=== PATIENT | female | born 1995 | race Caucasian/White ===

== ENCOUNTER 2020-09-07 10:56 | Emergency (ER) | payer MEDICAID ==
[~2020-09-07] VITALS: Ht 157.5 cm; Wt 65.7 kg
[2020-09-07] MEDS ORDERED: ACETAMINOPHEN 500 MG TABLET PO ONE (13:00)
[2020-09-07 13:03] LABS: BILIRUBIN,URINE NEGATIVE (NEG); COLOR,URINE YELLOW; NITRITE,URINE NEGATIVE (NEG); PROTEIN,URINE NEGATIVE (NEG-TRACE); UROBILINOGEN,URINE 0.2 mg/dL (0.2 mg/dL)
[2020-09-07 13:07] LABS: CLARITY,URINE HAZY
[2020-09-07 13:08] LABS: BACTERIA,URINE FEW /HPF (0-FEW)
--- NOTE | 2020-09-07 13:21 | PHYS DOC ---
Past Medical History Past Medical History: Diabetes-Type II, Other Additional Past Medical Histor: placental abrubtion (COREY BAUER SANDAL PARTS ASSEMBLER) Past Surgical History: (COREY BAUER SANDAL PARTS ASSEMBLER) Smoking Status: Current Every Day Smoker Additional Information: 5 cigarettes daily Alcohol Use: None (COREY BAUER APRN) General Adult EDM: Chief Complaint: ABDOMINAL PAIN HPI: HPI: Patient is a 25 year old Female who presents with last menstrual period July 20. She states that she had many test that were positive and then it has slowly been fading into a negative. 2 days of small vaginal bleeding and intermittent cramping with some nausea. She denies abdominal pain at this time. Patient has a history of back in December, diabetes, smoker. She does not currently have a OB doctor. (COREY BAUER SANDAL PARTS ASSEMBLER) Review of Systems: Review of Systems: Constitutional: Denies fever or chills. [] Eyes: Denies change in visual acuity. [] HENT: Denies nasal congestion or sore throat. [] Respiratory: Denies cough or shortness of breath. [] Cardiovascular: Denies chest pain or edema. [] GI: + abdominal pain, +nausea, denies vomiting, bloody stools or diarrhea. [] : Denies dysuria. + Vaginal bleeding [] Musculoskeletal: Denies back pain or joint pain. [] Integument: Denies rash. [] Neurologic: Denies headache, focal weakness or sensory changes. [] Endocrine: Denies polyuria or polydipsia. [] Lymphatic: Denies swollen glands. [] Psychiatric: Denies depression or anxiety. [] (COREY BAUER SANDAL PARTS ASSEMBLER) Heart Score: Risk Factors: Risk Factors: DM, Current or recent (<one month) smoker, HTN, HLP, family history of CAD, obesity. Risk Scores: Score 0 - 3: 2.5% MACE over next 6 weeks - Discharge Home Score 4 - 6: 20.3% MACE over next 6 weeks - Admit for Clinical Observation Score 7 - 10: 72.7% MACE over next 6 weeks - Early Invasive Strategies (COREY BAUER S[employer]AL [employer] ASSEMBLER) Current Medications: Current Medications Medications (Trade) Dose Ordered Sig/Abelardo Start Time Stop Time Status Last Admin Dose Admin Acetaminophen (Tylenol) 1,000 mg 1X ONCE 09/07/20 13:00 09/07/20 13:01 DC (LIZETTECOREYFRITZ Boothe APRN) Allergies: Allergies: Allergies Coded Allergies Type Severity Reaction Last Updated Verified amoxicillin Adverse Reaction Intermediate n/v 09/07/20 Yes (RUBINA BAUERFRITZ Boothe APRN) Physical Exam: PE: Constitutional: Well developed, well nourished, no acute distress, non-toxic appearance. [] HENT: Normocephalic, atraumatic, bilateral external ears normal, oropharynx moist, no oral exudates, nose normal. [] Eyes: PERRLA, EOMI, conjunctiva normal, no discharge. [] Neck: Normal range of motion, no tenderness, supple, no stridor. [] Cardiovascular:Heart rate regular rhythm, no murmur [] Lungs & Thorax: Bilateral breath sounds clear to auscultation [] Abdomen: Bowel sounds normal, soft, no tenderness, no masses, no pulsatile masses. [] Skin: Warm, dry, no erythema, no rash. [] Back: No tenderness, no CVA tenderness. [] Extremities: No tenderness, no cyanosis, no clubbing, ROM intact, no edema. [] Neurologic: Alert and oriented X 3, normal motor function, normal sensory function, no focal deficits noted. [] Psychologic: Affect normal, judgement normal, mood normal. [] (GAMALIELCOREY APRN) Current Patient Data: Labs: Laboratory Tests Test 09/07/20 12:30 09/07/20 12:54 Urine Collection Type Void Urine Color Yellow Urine Clarity Hazy Urine pH 6.0 (<5.0-8.0) Urine Specific [place] <=1.005 (1.000-1.030) Urine Protein Negative mg/dL (NEG-TRACE) Urine Glucose (UA) Negative mg/dL (NEG) Urine Ketones (Stick) Negative mg/dL (NEG) Urine Blood Large (NEG) Urine Nitrite Negative (NEG) Urine Bilirubin Negative (NEG) Urine Urobilinogen Dipstick 0.2 mg/dL (0.2 mg/dL) Urine Leukocyte Esterase Negative (NEG) Urine RBC 6-10 /HPF (0-2) Urine WBC 1-4 /HPF (0-4) Urine Squamous Epithelial Cells Few /LPF Urine Bacteria Few /HPF (0-FEW) Urine Mucus Slight /LPF POC Urine HCG, Qualitative Hcg negative (Negative) Vital Signs: Vital Signs Date Time Temp Pulse Resp B/P (MAP) Pulse Ox O2 Delivery O2 Flow Rate FiO2 09/07/20 12:43 99.0 68 16 113/64 (80) 99 Room Air 99.0 (COREY BAUER APRN) EKG: EKG: [] (COREY BAUER APRN) Radiology/Procedures: Radiology/Procedures: [] Impression: [facility] [id number] [place] [address] IMAGING REPORT Signed PATIENT: KEREN AGUILAR ACCOUNT: [id number] : 1995 LOCATION: ER AGE: 25 SEX: F EXAM STATUS: REG ER ORD. PHYSICIAN: COREY BAUER APRN REASON: vaginal bleeding; HAD +AT HOME PREG TEST;NEG TEST IN ER; CRAMPING PROCEDURE: PELVIS W/TV Pelvic ultrasound to include transabdominal and transvaginal imaging 09/07/2020 CLNICAL HISTORY: Pelvic pain. Vaginal bleeding. Negative test in the emergency department. TECHNIQUE: Using the distended urinary bladder as a sonographic window, a real-time ultrasound examination of the pelvis was performed. Additionally in an attempt to better evaluate the uterus and adnexa, a transvaginal ultrasound study was performed. Multiple images were obtained. FINDINGS: The uterus is within normal limits in size and echogenicity. It measures 6.3 x 5.5 x 4.1 cm in longitudinal, transverse, and AP dimensions. The endometrial echo complex measures 1.5 cm in thickness which is within normal limits. No focal abnormality of the uterus is seen. The ovaries are within normal limits in size. The right ovary measures 2.4 x 2.8 x 2.8 cm in size. The left ovary measures 3.4 x 4.4 x 3.8 cm in size. A 2.6 cm rounded anechoic structure is seen within the right ovary consistent with a simple cyst. An oval-shaped anechoic structure is seen within the left ovary which measures 3.6 cm in size. This is consistent with a simple cyst. No free fluid is seen. IMPRESSION: Simple cysts are seen involving both ovaries, left greater than right. Electronically signed by: Joon Avina MD (09/07/2020 2:13 PM) [id number] DICTATED and SIGNED BY: JOON AVINA MD DATE: 09/07/20 141 (COREY BAUER APRN) Course & Med Decision Making: Course & Med Decision Making Pertinent Labs and Imaging studies reviewed. (See chart for details) See HPI. Abdomen is soft and nontender. Alert and oriented x4. Cervix is closed. Patient has having a small amount of blood. She states she is not soaking pads and there are not large clots. Patient states she does not have any concerns for sexually transmitted diseases. Skin pink warm and dry. Ambulatory with steady gait. Vital signs within normal limits. Ultrasound does not show a or anything within the uterus. Patient is most likely on her menstrual cycle. Urine is negative. Blood work is unremarkable. Patient is positive for bacterial vaginosis. Patient to follow- up with her primary care provider and I will refer her to a INDIRECT SALES REPRESENTATIVE. Pelvic Exam: Doughnut Maker present Abdomen: Nontender External Genitalia: Normal Skin Speculum: Normal vaginal mucosa, small bloody cervical discharge Bimanual: No adnexal masses or tenderness, No CMT [] (COREY BAUER APRN) Dragon Disclaimer: Dragon Disclaimer: This electronic medical record was generated, in whole or in part, using a voice recognition dictation system. (COREY BAUER APRN) Departure Departure Impression: Primary Impression: Vaginal bleeding Additional Impression: Bacterial vaginosis Disposition: 01 DC HOME SELF CARE/HOMELESS Condition: STABLE Referrals: NO PCP (PCP) JANICE VELASQUEZ Jr, MD Patient Instructions: Bacterial Vaginosis, [id number], Medical Screening Exam Additional Instructions: I have referred you to a INDIRECT SALES REPRESENTATIVE. Please follow-up with an INDIRECT SALES REPRESENTATIVE as soon as possible. Drink plenty of fluids. Take Tylenol or ibuprofen for any of your pain. Scripts Metronidazole (METRONIDAZOLE) 500 Mg Tablet 1 TAB PO BID for 7 Days, #14 TAB 0 Refills Prov: COREY BAUER APRN 09/07/20 Attending Signature Attending Signature I have reviewed the PA/SHOWROOM SALES ASSISTANT's note and plan of care. I was available for consultation as needed during the patient's visit in the emergency department. I agree with the clinical impression, plan, and disposition. (TAYLER MARCOS DO) COREY BAUER APRN Sep 07, 2020 13:21 TAYLER MARCOS DO Sep 08, 2020 06:40
[2020-09-07 14:04] LABS: BASO % 1 % (0-3); EOS % 0 % (0-3); HEMATOCRIT 34.1 % (36.0-47.0); HEMOGLOBIN 11.1 g/dL (12.0-15.5); LYMPH # 1.7 x10^3/uL (1.0-4.8); LYMPH % 30 % (24-48); MEAN CORPUSCULAR HEMOGLOBIN 26 pg (25-35); MEAN CORPUSCULAR HGB CONC 33 g/dL (31-37); MEAN CORPUSCULAR VOLUME 78 fL (79-100); MONO # 0.5 x10^3/uL (0.0-1.1); MONO % 8 % (0-9); NEUT # 3.4 x10^3/uL (1.8-7.7); NEUT % 61 % (31-73); PLATELET COUNT 238 x10^3/uL (140-400); RED BLOOD COUNT 4.35 x10^6/uL (3.50-5.40); RED CELL DISTRIBUTION WIDTH 17.3 % (11.5-14.5); WHITE BLOOD COUNT 5.6 x10^3/uL (4.0-11.0)
[2020-09-07 14:11] LABS: CALCIUM 9.2 mg/dL (8.5-10.1); CREATININE 0.8 mg/dL (0.6-1.0); GFR 88.9; POTASSIUM 3.6 mmol/L (3.5-5.1)
--- NOTE | 2020-09-07 14:16 | RAD ---
Pelvic ultrasound to include transabdominal and transvaginal imaging 09/07/2020 CLNICAL HISTORY: Pelvic pain. Vaginal bleeding. Negative test in the emergency department. TECHNIQUE: Using the distended urinary bladder as a sonographic window, a real-time ultrasound examination of the pelvis was performed. Additionally in an attempt to better evaluate the uterus and adnexa, a transvaginal ultrasound study was performed. Multiple images were obtained. FINDINGS: The uterus is within normal limits in size and echogenicity. It measures 6.3 x 5.5 x 4.1 cm in longitudinal, transverse, and AP dimensions. The endometrial echo complex measures 1.5 cm in thickness which is within normal limits. No focal abnormality of the uterus is seen. The ovaries are within normal limits in size. The right ovary measures 2.4 x 2.8 x 2.8 cm in size. The left ovary measures 3.4 x 4.4 x 3.8 cm in size. A 2.6 cm rounded anechoic structure is seen within the right ovary consistent with a simple cyst. An oval-shaped anechoic structure is seen within the left ovary which measures 3.6 cm in size. This is consistent with a simple cyst. No free fluid is seen. IMPRESSION: Simple cysts are seen involving both ovaries, left greater than right. Electronically signed by: Joon Avina MD (09/07/2020 2:13 PM) [place] [id number]
[2020-09-07 14:17] LABS: ALBUMIN 3.8 g/dL (3.4-5.0); ALBUMIN/GLOBULIN RATIO 1.1 (1.0-1.7); TOTAL BILIRUBIN 0.3 mg/dL (0.2-1.0); TOTAL PROTEIN 7.4 g/dL (6.4-8.2)
[2020-09-07] MEDS ORDERED: METR-34 PO (14:24)
[2020-09-07 14:47] VITALS: BP 116/65
== END 2020-09-07 14:54 | disposition home or self-care (01) ==
LOC: ER 10:56
DX: N76.0 Acute vaginitis (principal); B96.89 Other specified bacterial agents as the cause of diseases classified elsewhere; N93.9 Abnormal uterine and vaginal bleeding, unspecified; R11.0 Nausea; R10.9 Unspecified abdominal pain; E11.9 Type 2 diabetes mellitus without complications; F17.210 Nicotine dependence, cigarettes, uncomplicated; Z98.890 Other specified postprocedural states
CPT/HCPCS: 76830; 76856; 80053; 81001; 81025; 84702; 85025; 87491; 87591; 99284; Q0111